=== PATIENT | male | born 1940 | race Asian ===

== ENCOUNTER 2017-04-24 15:28 | Emergency (ER) | payer MEDICARE ==
[~2017-04-24] VITALS: Ht 165.1 cm; Wt 75.0 kg
[2017-04-24 15:34] VITALS: BP 131/87; PULSE 66; PULSE 77; RESP 20; O2SAT 98
--- NOTE | 2017-04-24 16:49 | ED.REPORT ---
HPI-Headache Date of Service Apr 24, 2017 ED Provider: The patient is a 76 year old male with history of chronic lower back pain, who was sent to the emergency department from urgent care for a headache that has been ongoing over the last week. His pain is located to the left occipital region. The headache has been waking him up at night. His symptoms are slightly improved with aspirin. He does not get headaches regularly. The patient states this is the worst headache he has ever had. He denies fever, chills, neck pain, nausea, vomiting, numbness or weakness. Nursing Notes Stated Complaint: HEADACHE FOR A WEEK Chief Complaint: Headache Nursing Notes Reviewed: Yes Allergies: Coded Allergies: No Known Allergies (Unverified , 04/24/17) Scheduled PRN Naproxen Sodium (Naproxen Sodium) 275 Mg Tablet 275 MG PO BID PRN PRN For Pain Prochlorperazine Maleate (Compazine) 10 Mg Tablet 10 MG PO TID PRN PRN For Headache General Time Seen by MD: 16:49 Chief Complaint Headache Hx Obtained From: Patient Arrived By: Walk-in Sudden in Onset?: No Onset Occurred: 1 week ago Symptom Duration: Since onset Location: : Occipital left Quality: Painful Severity: Current: Moderate Severity: Maximum: Severe Recent Healthcare: No recent hospitalization, Recent doctor visit Similar Sx Previous: No Past Medical History Past Medical History Chronic back pain Family History Noncontributo Smoking History Unknown if Ever Smoker Social History Other Social History: Local resident Ambulatory Status Independent Review of Systems Constitutional: Denies: Chills, Fever GI: Denies: Nausea, Vomiting Musculoskeletal: Denies: Neck pain Neurologic: Reports: Headache, Denies: Focal weakness, Numbness Complete sys rev & neg: except as marked. Physical Exam Initial Vital Signs Vital Signs (First) Date Time Temp Pulse Resp B/P Pulse Ox O2 Delivery O2 Flow Rate FiO2 04/24/17 15:34 36.4 77 20 131/87 98 Room Air Initial VS: Reviewed ENT: Mucous membranes moist, Conjunctiva normal, No scleral icterus Respiratory: Breath sounds normal, Clear to auscultation, No respiratory distress Cardiovascular: Regular rate & rhythm, Heart sounds normal, Intact distal pulses Abdomen / GI: Soft, Non-tender, No guarding, No rebound, No distention Lymphatic: No lymphadenopathy Extremities: Vascular intact, Neuro intact, No swelling, No tenderness Skin: Warm, Dry, No cyanosis Psychiatric: Mood/affect normal, Behavior normal, Normal thought content General/Constitutional: Awake, Alert Head / Eyes: Atraumatic, Normocephalic, PERRL, EOMI, No nystagmus, No photophobia, Conjunctiva NL, Temporal arteries NL Neck: Atraumatic, Supple, No meningismus, Full range of motion, No swelling, Non-tender, No midline vertebral tend, No masses Neurologic: Oriented X3, Speech NL, No motor deficits, No sensory deficits, CN II - XII intact, Cerebellar NL, Memory NL, Gait NL Interpretation & Diagnostics Lab Results Interpretation Result Diagram: 04/24/17 1700 04/24/17 1700 Test 04/24/17 17:00 White Blood Count 10.5th/mm3 (3.8-10.1) Red Blood Count 5.19mil/mm3 (4.40-5.80) Hemoglobin 16.1g/dL (13.8-17.2) Hematocrit 46.6% (41.0-50.0) Mean Corpuscular Volume 89.8fL (81-100) Mean Corpuscular Hemoglobin 31.0pg (27.0-35.0) Mean Corpuscular Hemoglobin Concent 34.5% (32.0-37.0) Red Cell Distribution Width 13.0% (12.3-15.4) Platelet Count 209bil/L (150-400) Neutrophils (%) (Auto) 51.7% (40-74) Lymphocytes (%) (Auto) 38.5% (14-46) Monocytes (%) (Auto) 7.1% (4-12) Eosinophils (%) (Auto) 1.8% (0-5) Basophils (%) (Auto) 0.5% (0-3) Prothrombin Time 10.5sec (8.1-12.5) Prothromb Time International Ratio 0.98ratio Activated Partial Thromboplast Time 28.0sec (22.8-33.0) Sodium Level 138mEq/L (134-144) Potassium Level 3.8mEq/L (3.5-5.2) Chloride Level 99mEq/L (97-108) Carbon Dioxide Level 23mmol/L (18-29) Blood Urea Nitrogen 15mg/dL (8-27) Creatinine 1.05mg/dL (0.76-1.27) Estimat Glomerular Filtration Rate 73mL/min (>59) Glucose Level 127mg/dL (60-99) Calcium Level 9.1mg/dL (8.5-10.1) CT Head Interpretation IMPRESSION: 1. No acute intracranial findings. 2. Mild findings likely associated with chronic microvascular ischemic changes. Dictated by: Robina Perry M.D. on 04/24/2017 at 17:47 Study: Head CT no contrast Interpretation / Wet Read by: Interpret - Radiologist Re-Eval/Medical Decision Med Decision/Clinical Course Patient complained of headache intermittently for about a week, head CT and labs are unremarkable, headache has resolved however we discussed at length the concern for subarachnoid hemorrhage and the need for lumbar puncture. Patient declined this. Additionally discussed the possibility of an angio head CT which the patient also declined. Will discharge on naproxen and Compazine, return and follow-up precautions given. Source of Hx: Old records Re-Evaluation/Progress : Time of Eval: 18:02 Re-Evaluation/Progress Note: Rechecked the patient. He is feeling better and his headache has drastically improved. Offered LP, the patient declined. Discussed concern for subarachnoid hemorrhage, and risk of if this is missed. I also offered him a CTA brain, he declined this as well and states he would like to just go home with medication to help with his symptoms. He understands all of the risks by not having these tests completed. Counseled Regarding: Diagnosis, Need for follow-up, When/why to return to ED Discharge & Departure Impression: Primary Impression: Headache Headache type: unspecified Headache chronicity pattern: acute headache Intractability: not intractable Qualified Code: R51 - Headache Disposition: Home Discharge Condition All VS Reviewed: Yes Condition: Stable Patient Instructions: Acute Headache (ED) Additional Instructions: Thank you for entrusting us with your care today. You have decided against having a lumbar puncture or an additional brain scan. It is very important that you followup with your regular doctor in the next few days. Use the medications as prescribed for your headache. Return to the emergency department for worsening pain, visual changes, neck pain , fever, chills, vomiting, or any other new or concerning symptoms. Scribe Attestation Portions of this note were transcribed by Kathleen Izaguirre. IDr. Zurita personally performed the history, physical exam and medical decision-making; I reviewed and confirmed the accuracy of the information in the transcribed note. Signed by: Tom De La Fuente, 04/24/2017 at 1815. Robert Zurita DO Apr 24, 2017 16:49 Kathleen Izaguirre Apr 24, 2017 16:55
[2017-04-24] MEDS ORDERED: 0.9% Sodium Chloride 1,000 ML IV ONE (16:53)
[2017-04-24] MEDS ORDERED: ProchlorPERazine 5 mg/mL 2 mL Inj IVPUSH ONE (16:55)
--- NOTE | 2017-04-24 17:51 | DRSVH ---
PROCEDURE: CT BRAIN WITHOUT CONTRAST ([id number]) INDICATIONS: headache TECHNIQUE: Noncontrast 4.5 mm thick angled axial sections acquired from the foramen magnum to the vertex, with c oronal reformats. COMPARISON: None. FINDINGS: Image quality: Excellent. CSF spaces: Basal cisterns are patent. No extra-axial fluid collections. The ventricles are symmet chago in size and shape. Brain: No intracranial bleeds or masses. A punctate parenchymal calcification is present within the right frontal lobe which has a benign, chronic appearance. There are patchy calcifications within th e basal ganglia bilaterally. There is cerebral volume loss for age, with resultant ventricular and mon lcal prominence. There are periventricular and deep white matter chronic small vessel ischemic ebrg es. There is intracranial internal carotid artery atherosclerosis. Skull and face: Calvarium and visualized facial bones appear intact, without suspicious lesions. Sinuses: Visualized sinuses and mastoids are clear. IMPRESSION: 1. No acute intracranial findings. 2. Mild findings likely associated with chronic microvascular ischemic changes. Dictated by: Robina Perry M.D. on 04/24/2017 at 17:47 Approved by: Robina Perry M.D. on 04/24/2017 at 17:49
[2017-04-24 17:52] LABS: BASOPHILS % (AUTO) 0.5 % (0-3); EOSINOPHILS % (AUTO) 1.8 % (0-5); MONOCYTES % (AUTO) 7.1 % (4-12); Mean Corpuscular Volume 89.8 fL (81-100); NEUTROPHILS % (AUTO) 51.7 % (40-74); Platelet Count 209 bil/L (150-400)
[2017-04-24 17:57] LABS: INR 0.98 ratio
[2017-04-24] MEDS ORDERED: [UNRECOGNIZED DRUG - CODE] PO (18:06)
[2017-04-24] MEDS ORDERED: PROC-4 PO (18:06)
[2017-04-24 18:48] VITALS: BP 135/84; PULSE 62; RESP 16; O2SAT 99
== END 2017-04-24 18:48 | disposition home or self-care (01) ==
LOC: SED 15:28
DX: R51 Headache (principal)
CPT/HCPCS: 70450; 80048; 85025; 85610; 85730; 96361; 96374; 96375; 99285; G0463; J0780; J1200; J7030